=== PATIENT | female | born 1970 | race American Indian/Alaskan Native ===

== ENCOUNTER 2017-07-24 09:09 | Outpatient (CLI) | payer OTHER ==
--- NOTE | 2017-07-24 14:09 | Mammography Report ---
BILATERAL DIGITAL SCREENING MAMMOGRAM with CAD : 07/24/17 09:09:00 CLINICAL: Routine screening.Previous bilateral benign biopsies. COMPARISON:05/26/15 bilateral screening mammogram and 06/08/15 and 06/09/15 right mammograms. FINDINGS: The breasts are heterogeneously dense, which may obscure small masses.Stable right outer periareolar scar with a biopsy clip. Stable left hilar parenchymal asymmetries. No mass, architectural distortion or suspicious calcifications. IMPRESSION: No mammographic evidence of malignancy. BI-RADS CATEGORY: 2 -- Benign RECOMMENDATION: Routine mammographic screening in one year. COMMENT: Patient follow-up letters are generated by our [employer] application.
== END 2017-07-24 09:10 | disposition home or self-care (01) ==
LOC: SPVWC 09:09
PROVIDERS: ATTEND Internal Medicine
DX: Z12.31 Encounter for screening mammogram for malignant neoplasm of breast (principal)
CPT/HCPCS: 77067; G0202

== ENCOUNTER 2019-08-11 08:21 | Outpatient (CLI) | payer OTHER ==
--- NOTE | 2019-08-11 16:30 | Mammography Report ---
DIGITAL SCREENING MAMMOGRAM WITH CAD, 08/11/2019 INDICATION: Routine screening mammography. Previous bilateral benign biopsies. TECHNIQUE: Digital bilateral 2D mammography was obtained in the craniocaudal and mediolateral obliq ue projections. This examination was interpreted with the benefit of Computer-Aided Detection analysi s. COMPARISON: 08/02/2018 FINDINGS: Breast Density: The breasts are heterogeneously dense, which may obscure small masses. There is no evidence of new mass, suspicious calcifications or architectural distortion in either afua ast. The right breast is smaller than the left but this is unchanged compared to previous exams. A ri [facility] [place][note 3] outer biopsy clip. IMPRESSION: No mammographic evidence of malignancy. Follow up recommendation: Routine yearly BI-RADS Category 2: Benign. A "normal" or negative report should not discourage follow up or biopsy of a clinically significant f inding. A written summary of these findings will be mailed to the patient. The patient will be entered into a mammography reporting system which will generate a reminder letter for the patient's next appointmen t at the appropriate interval. The [employer] recommends yearly mammograms starting at age 40 and continuing as l karina as a woman is in good health. Breast MRI is recommended for women with an approximate 20-25% or greater lifetime risk of breast cancer, including women with a strong family history of breast or ova hunter cancer or who have been treated for Hodgkin's disease. Signer Name: Brendan Lowry MD Signed: 08/11/2019 4:25 PM Workstation Name: [id number]
== END 2019-08-11 08:22 | disposition home or self-care (01) ==
LOC: SPVWC 08:21
PROVIDERS: ATTEND Nurse Practitioner Family
DX: Z12.31 Encounter for screening mammogram for malignant neoplasm of breast (principal)
CPT/HCPCS: 77067

== ENCOUNTER 2020-08-12 08:21 | Outpatient (CLI) | payer OTHER ==
--- NOTE | 2020-08-12 09:40 | Mammography Report ---
DIGITAL SCREENING MAMMOGRAM WITH CAD, 08/12/2020 CLINICAL INFORMATION / INDICATION: Routine screening mammography. TECHNIQUE: Digital bilateral 2D mammography was obtained in the craniocaudal and mediolateral obliqu e projections. This examination was interpreted with the benefit of Computer-Aided Detection analysis . COMPARISON: 2018, 08/02/2018 FINDINGS: Breast Density: There are scattered areas of fibroglandular density. No dominant mass, suspicious calcifications, or architectural distortion in either breast. A right breast biopsy clip and upper outer left breast nodule/node are unchanged. IMPRESSION: No mammographic evidence of malignancy. Follow up recommendation: Routine yearly BI-RADS Category 2: Benign. A "normal" or negative report should not discourage follow up or biopsy of a clinically significant f inding. A written summary of these findings will be mailed to the patient. The patient will be entered into a mammography reporting system which will generate a reminder letter for the patient's next appointmen t at the appropriate interval. The [employer] recommends yearly mammograms starting at age 40 and continuing as l karina as a woman is in good health. Breast MRI is recommended for women with an approximate 20-25% or greater lifetime risk of breast cancer, including women with a strong family history of breast or ova hunter cancer or who have been treated for Hodgkin's disease. Signer Name: Jc Dubois MD Signed: 08/12/2020 9:36 AM Workstation Name: [id number]
== END 2020-08-12 08:22 | disposition home or self-care (01) ==
LOC: SPVWC 08:21
PROVIDERS: ATTEND Nurse Practitioner Family
DX: Z12.31 Encounter for screening mammogram for malignant neoplasm of breast (principal)
CPT/HCPCS: 77067

== ENCOUNTER 2021-10-04 10:00 | Outpatient (CLI) | payer OTHER ==
--- NOTE | 2021-10-06 14:09 | Mammography Report ---
DIGITAL SCREENING MAMMOGRAM WITH CAD, 10/04/2021 CLINICAL INFORMATION / INDICATION: Routine screening mammography. TECHNIQUE: Digital bilateral 2D mammography was obtained in the craniocaudal and mediolateral obliqu e projections. This examination was interpreted with the benefit of Computer-Aided Detection analysis . COMPARISON: 08/12/2020, 08/11/2019 FINDINGS: Breast Density: There are scattered areas of fibroglandular density. No dominant mass, suspicious calcifications, or architectural distortion in either breast. Right breast biopsy clip is again noted. Left breast nodularity is stable. There is new small cluster of calcifications in the upper outer left breast that will need further evaluation with magnificatio n views. No additional significant interval change. IMPRESSION: Recommend left magnification views for new small cluster calcifications upper outer quadr ant. Follow up recommendation: Special View: Mag BI-RADS Category 0: INCOMPLETE. Needs additional imaging evaluation and/or prior mammograms for benedict weldon. A "normal" or negative report should not discourage follow up or biopsy of a clinically significant f inding. A written summary of these findings will be mailed to the patient. The patient will be entered into a mammography reporting system which will generate a reminder letter for the patient's next appointmen t at the appropriate interval. The [employer] recommends yearly mammograms starting at age 40 and continuing as l karina as a woman is in good health. Breast MRI is recommended for women with an approximate 20-25% or greater lifetime risk of breast cancer, including women with a strong family history of breast or ova hunter cancer or who have been treated for Hodgkin's disease. Signer Name: Cristina Hunter MD Signed: 10/06/2021 2:05 PM Workstation Name: [id number]
== END 2021-10-04 10:01 | disposition home or self-care (01) ==
LOC: SPVWC 10:00
PROVIDERS: ATTEND Nurse Practitioner Family
DX: Z12.31 Encounter for screening mammogram for malignant neoplasm of breast (principal)
CPT/HCPCS: 77067

== ENCOUNTER 2021-11-10 10:44 | Outpatient (CLI) | payer OTHER ==
--- NOTE | 2021-11-10 13:25 | Mammography Report ---
LEFT DIGITAL DIAGNOSTIC MAMMOGRAM WITH CAD CONVENTIONAL, 11/10/2021 RIGHT COMPLETE BREAST ULTRASOUND CLINICAL INFORMATION / INDICATION: Patient presents as a callback from screening mammogram for furthe r evaluation of left breast calcifications. Patient also reports diffuse right breast pain, for which a right breast ultrasound is ordered. R92.8 TECHNIQUE: Digital left mammographic imaging was performed. Magnification views were obtained. Comple te ultrasound of all four (4) quadrants was performed. This examination was interpreted with the bene fit of Computer-Aided Detection (CAD) analysis. COMPARISON: Prior mammogram 10/04/2021 FINDINGS: Breast Density: There are scattered areas of fibroglandular density. MAMMOGRAPHIC FINDINGS: As seen on prior mammogram, there is a 7 mm group of coarse heterogeneous calc ifications seen in the upper outer quadrant of the LEFT breast located approximately 13 cm from the n ipple. ULTRASOUND FINDINGS: Complete sonographic evaluation of all 4 quadrants and retroareolar region was p erformed. Complete ultrasound was performed of the RIGHT breast. There is a 1.2 cm hypoechoic mass in the right breast 7:00 position located 3 cm from the nipple with associated biopsy clip. This is b een stable with prior mammograms dating back to 2014 and is considered benign. Otherwise, complete ul trasound of the right breast is unremarkable. IMPRESSION: 1. A small group of calcifications in the left breast are suspicious for malignancy, stereotactic bio psy is recommended. 2. There is no sonographic abnormality to account for right breast pain, therefore clinical correlati on is recommended. Follow up recommendation: Biopsy BI-RADS Category 4: SUSPICIOUS FOR MALIGNANCY. A "normal" or negative report should not discourage follow up or biopsy of a clinically significant f inding. A written summary of these findings will be mailed to the patient. The patient will be entered into a mammography reporting system which will generate a reminder letter for the patient's next appointmen t at the appropriate interval. According to the [employer], yearly mammograms are recommended starting at age 40 and continuing as long as a woman is in good health. Breast MRI is recommended for women with an aydin roximately 20-25% or greater lifetime risk of breast cancer, including women with a strong family his tory of breast or ovarian cancer and women who have been treated for Hodgkin's disease. Signer Name: Jeanie Magaña MD Signed: 11/10/2021 1:21 PM Workstation Name: [id number]
== END 2021-11-10 10:45 | disposition home or self-care (01) ==
LOC: MAMMO 10:44
PROVIDERS: ATTEND Nurse Practitioner Family
DX: R92.1 Mammographic calcification found on diagnostic imaging of breast (principal); N63.11 Unspecified lump in the right breast, upper outer quadrant
CPT/HCPCS: 77066